=== PATIENT | female | born 1990 | race Caucasian/White ===

== ENCOUNTER 2024-05-18 10:57 | Outpatient (CLI) | payer BC, SELFPAY ==
--- NOTE | ~2024-05-18 | XR_ITS ---
EXAMINATION: XR hysterosalpingogram DATE: 05/18/2024 12:34 INDICATION: Infertility. TECHNIQUE: Fluoroscopy was performed by the radiologist during contrast infusion into the endometrial cavity of the uterus by the primary physician. Fluoroscopy exposure time was 0.4 minutes. The total number of images was 5. FINDINGS: The uterus is septate. The fallopian tubes are normal in caliber. There is normal free intr aperitoneal spillage of contrast on either side. IMPRESSION: 1. Patent fallopian tubes. 2. Septate uterus. Reviewed, dictated and finalized at location A. NESS SUPPORT COORDINATOR
[2024-05-18 12:13] LABS: Beta HCG Quantitative < 2.39 mIU/ML
== END 2024-05-18 10:58 | disposition home or self-care (01) ==
PROVIDERS: PCP Emergency Medicine; Visit Provider Obstetrics & Gynecology
DX: N97.9 Female infertility, unspecified (principal)
CPT/HCPCS: 36415; 58340; 74740; 84702; Q9966